=== PATIENT | female | born 1950 | race Caucasian/White ===

== ENCOUNTER 2025-06-05 14:30 | Outpatient (CLI) | payer MEDICARE, OTHER | END 2025-06-05 14:31 | disposition home or self-care (01) | LOC: SCSMRI 14:30 | PROVIDERS: ATTEND Family Medicine Sports Medicine | DX: M47.26 Other spondylosis with radiculopathy, lumbar region (principal); M51.16 Intervertebral disc disorders with radiculopathy, lumbar region; M47.27 Other spondylosis with radiculopathy, lumbosacral region; M48.061 Spinal stenosis, lumbar region without neurogenic claudication; M48.07 Spinal stenosis, lumbosacral region; M47.25 Other spondylosis with radiculopathy, thoracolumbar region | CPT/HCPCS: 72148 ==